=== PATIENT | female | born 1955 | race American Indian/Alaskan Native ===

== ENCOUNTER 2017-06-10 11:28 | Emergency (ER) | payer OTHER ==
[2017-06-10 11:45] VITALS: RESP 18; TEMP 98.2
--- NOTE | 2017-06-10 12:01 | C.PDOC ---
History Of Present Illness 62 yo female c/o left knee pain for 2 weeks. Pt notes that [place], jumped up for her stop and felt her knee twisted. Pain is aggravated with certain positions and movement. She has been going to physical therapy. Has a h/ o of "weak knee" and decreased cartilage to that knee seen on MRI three years ago. Denies direct trauma, change in sensation, leg swelling, calf pain, SOB, or fever. Time Seen by Provider: 06/10/17 11:52 Chief Complaint (Nursing): Lower Extremity Problem/Injury History Per: Patient History/Exam Limitations: no limitations Onset/Duration Of Symptoms: Days (2 weeks) Past Medical History Vital Signs: Last Vital Signs Temp 98.2 F 06/10/17 11:43 Pulse 67 06/10/17 13:30 Resp 18 06/10/17 13:30 BP 124/76 06/10/17 13:30 Pulse Ox 97 06/10/17 13:30 Family History: States: Unknown Family Hx - Social History Hx Alcohol Use: No Hx Substance Use: No - Immunization History Hx Tetanus Toxoid Vaccination: No Hx Influenza Vaccination: No Hx Pneumococcal Vaccination: No Review Of Systems Except As Marked, All Systems Reviewed And Found Negative. Musculoskeletal: Positive for: Other (knee pain) Physical Exam - Physical Exam Appears: Well, Non-toxic, No Acute Distress (smiling and pleasant ) Skin: Normal Color, Warm, Dry Head: Atraumatic, Normacephalic Eye(s): bilateral: Normal Inspection, EOMI Nose: Normal Oral Mucosa: Moist Neck: Normal, Normal ROM, Supple Chest: Symmetrical Respiratory: No Accessory Muscle Use Back: Normal Inspection Extremity: Normal ROM, Tenderness ((+) TTP to the lateral knee ), No Calf Tenderness, Capillary Refill (<2 sec), Other (brace intact) Extremity: Bilateral: Normal Color And Temperature, Normal ROM Pulses: Left Dorsalis Pedis: Normal, Right Dorsalis Pedis: Normal Neurological/Psych: Oriented x3, Normal Speech, Normal Motor, Normal Sensation Gait: Steady ED Course And Treatment O2 Sat by Pulse Oximetry: 98 - Other Rad Knee XR X-Ray: Viewed By Me, Read By Radiologist Interpretation: PROCEDURE: Left Knee Radiographs. HISTORY: Pain. COMPARISON : None. FINDINGS: BONES: No evidence acute displaced fracture nor dislocation. The osseous structures appear intact. JOINTS: Tricompartmental degenerative osteoarthritis. The joint space narrowing with prominent marginal medial and lateral osteophytes. Spurring of the tibial spines. Prominent posterior patella and anterior femoral osteophyte formation. JOINT EFFUSION: . Suspect tiny suprapatellar joint effusion. OTHER FINDINGS: None. IMPRESSION: No evidence of acute displaced fracture nor dislocation. Significant tricompartmental degenerative osteoarthritis as above. Progress Note: Pt refused crutches and pain medication. Instructed RICE and follow up with ortho in 1-2 days. Disposition - Disposition Referrals: Stone Ngo III, MD [Staff Provider] - Disposition: HOME/ ROUTINE Disposition Time: 12:03 Condition: STABLE Additional Instructions: Follow up with your primary medical doctor or clinic in 2-5 days for further evaluation. Take medications as prescribed. Return to the emergency department at any time if symptoms persist or worsen. Prescriptions: Naproxen [Naprosyn] 1 tab PO BID PRN #20 tab PRN Reason: Pain Instructions: Knee Pain (DC) Forms: [facility] ([place]) - Clinical Impression Clinical Impression: Knee pain
--- NOTE | 2017-06-10 13:17 | RAD ---
PROCEDURE: Left Knee Radiographs. HISTORY: Pain. COMPARISON: None. FINDINGS: BONES: No evidence acute displaced fracture nor dislocation. The osseous structures appear intact. JOINTS: Tricompartmental degenerative osteoarthritis. The joint space narrowing with prominent marginal medial and lateral osteophytes. Spurring of the tibial spines. Prominent posterior patella and anterior femoral osteophyte formation JOINT EFFUSION: . Suspect tiny suprapatellar joint effusion. OTHER FINDINGS: None. IMPRESSION: No evidence of acute displaced fracture nor dislocation. Significant tricompartmental degenerative osteoarthritis as above.
[2017-06-10 13:39] VITALS: BP 124/76; PULSE 67
[2017-06-10 17:09] VITALS: O2SAT 98
== END 2017-06-10 13:31 | disposition home or self-care (01) ==
LOC: C.ER 11:28
DX: M25.562 Pain in left knee (principal)